=== PATIENT | female | born 1970 | race African-American/Black ===

== ENCOUNTER 2016-04-14 11:11 | Inpatient (IN) | payer OTHER ==
[~2016-04-14] VITALS: Ht 157.5 cm; Wt 105.6 kg
[~2016-04-14 11:11] MED LIST: AMBIEN10 MG PO; ARIPIPRAZOLE10 MG PO; ATARAX,VISTARIL50 MG PO; ATORVASTATIN CA20 MG PO; AVENTYL,PAMELOR50 MG PO; AVINZA30 MG PO; BUSPAR15 MG PO; BUSPIRONE HCL15 MG PO; CATAPRES0.3 MG PO; CLONIDINE HCL0.2 MG PO; CLONIDINE HCL0.3 MG PO; CORTISONE57 GM TP; CYCLOBENZAPRINE10 MG PO; CYMBALTA20 MG PO; CYMBALTA60 MG PO; DILAUDID2 MG PO; DULOXETINE HCL60 MG PO; GLUCOPHAGE XR750 MG PO; GLUCOPHAGE1000 MG PO; GLUCOPHAGE500 MG PO; HYDRALAZINE HCL50 MG PO; HYDROCORTISON28.4 GM TP; INDERAL LA60 MG PO; LASIX20 MG PO; LIPITOR20 MG PO; LISINOPRIL20 MG PO; LUNESTA3 MG PO; LYRICA50 MG PO; METFORMIN HCL1000 MG PO; METFORMIN HCL500 MG PO; MINOCIN100 MG PO; MORPHINE SULFAT15 M1 PO; MORPHINE SULFAT30 M2 PO; MOTRIN800 MG PO; NORCO 5/3251 TABLET PO; OLANZAPINE5 MG PO; OMEPRAZOLE20 MG PO; OPANA ER10 MG PO; PRAZOSIN HCL2 MG PO; PRILOSEC20 MG PO; PROMETHAZINE HC25 M1 PO; PROPRANOLOL HCL40 MG PO; PROPRANOLOL HCL60 MG; PROPRANOLOL HCL60 MG PO; PROPRANOLOL HCL80 M1 PO; QUETIAPINE FUM200 MG PO; REGLAN10 MG PO; RYBIX ODT50 MG PO; SAVELLA100 MG PO; SAVELLA50 MG; TOPAMAX50 MG PO; TOPIRAMATE100 MG PO; TOPIRAMATE25 MG PO; TRAMADOL HCL50 MG PO; TRAZODONE HCL50 MG PO; TRIAMCINOLONE A15 GM TP; ULTRAM50 MG PO; ZIPRASIDONE HCL80 MG PO; ZOLPIDEM TARTRA10 MG PO; ZOLPIDEM TARTRAT5 MG PO; [UNRECOGNIZED DRUG - OTHER] PO
[2016-04-14 13:19] LABS: HEMATOCRIT 36.4 % (36.0-46.0); MCHC 31.3 G/DL (30.0-36.0); MCV 79.8 FL (83-99); MEAN PLAT.VOLUME 10.8 uM^3 (9.5-12.4); PLATELET COUNT 301 K/uL (156-360); RBC DIS.WIDTH-CV 16.3 % (11.8-14.6); RBC DIS.WIDTH-SD 46.7 % (39-53); RED BLOOD COUNT 4.56 M/uL (3.80-5.20); WHITE BLOOD COUNT 6.1 K/uL (4.1-10.2)
[2016-04-14 13:27] LABS: CHLORIDE 104 mEq/L (99-109); POTASSIUM 3.5 mEq/L (3.7-5.4); SODIUM 143 mEq/L (136-147)
[2016-04-14 13:30] LABS: GLUCOSE 83 mg/dL (70-99)
[2016-04-14 13:31] LABS: ANION GAP 10 MEQ/L (2-14); TOTAL BILIRUBIN 0.3 mg/dL (0.0-1.0)
[2016-04-14 13:32] LABS: SERUM ETHYL ALCOHOL < 10 mg/dL
[2016-04-14 13:33] LABS: ALKALINE PHOSPHATASE 83 IU/L (3-129); GFR ESTIMATE (CALCULATED) > 59 mL/min/
[2016-04-14 13:34] LABS: UREA NITROGEN (BUN) 5 mg/dL (9-23)
[2016-04-14 13:44] LABS: QUANTITATIVE HCG < 4.0 MIU/ML
[2016-04-14 14:18] LABS: ADD MIUA? YES; BILIRUBIN NEGATIVE; BLOOD NEGATIVE; COLOR YELLOW ((YELLOW)); GLUCOSE (STRIP) NEGATIVE; KETONES NEGATIVE; LEUKOCYTES NEGATIVE; NITRITE NEGATIVE; PROTEIN (STRIP) NEGATIVE; SPECIFIC GRAVITY 1.018 (1.000-1.030); UROBILINOGEN 0.2 MG/DL (0.2-1.0)
[2016-04-14 14:25] LABS: AMPHETAMINE NEGATIVE (500 ng/mL); BARBITURATES NEGATIVE (200 ng/mL); BENZODIAZEPINES NEGATIVE (150 ng/mL); COCAINE NEGATIVE (150 ng/mL); INTERNAL CONTROLS VALID? YES; METHADONE PRESUMPTIVE POSITIVE (200 ng/mL); METHAMPHETAMINE NEGATIVE (500 ng/mL); OPIATES (MORPHINE) PRESUMPTIVE POSITIVE (100 ng/mL); OXYCODONE NEGATIVE (100 ng/mL); PHENCYCLIDINE NEGATIVE (25 ng/mL); PROPOXYPHENE NEGATIVE (300 ng/mL); THC CANNABINOIDS NEGATIVE (50 ng/mL); TRICYCLIC ANTIDEPRESSANTS PRESUMPTIVE POSITIVE (300 ng/mL)
[2016-04-14 14:26] LABS: ADD MEDTOX COMMENT Y
[2016-04-14 14:33] LABS: BACTERIA 2+ /HPF; EPITHELIAL CELLS 2+ /HPF; HYALINE CASTS 0-5 /LPF; MUCUS 2+ /LPF; RED BLOOD CELLS 0-5 /HPF (0-5); WHITE BLOOD CELLS 0-5 /HPF (0-5)
[2016-04-14] MEDS ORDERED: METHADONE10 MG PO ×2 (15:30)
[2016-04-14] MEDS ORDERED: DILAUDID2 MG PO (15:31)
[2016-04-14] MEDS ORDERED: CYMBALTA60 MG PO (15:32)
[2016-04-14 15:43] VITALS: BP 132/72
[2016-04-14 21:37] VITALS: BP 124/63
[2016-04-15 07:31] VITALS: BP 124/62
[2016-04-15 15:40] VITALS: BP 119/62
[2016-04-16 07:53] VITALS: BP 130/58
[2016-04-16 15:34] VITALS: BP 108/55
[2016-04-17 07:44] VITALS: BP 128/66
[2016-04-17 16:18] VITALS: BP 142/67
[2016-04-18 08:11] VITALS: BP 118/58
[2016-04-18 15:34] VITALS: BP 129/63
[2016-04-19 07:55] VITALS: BP 129/55
[2016-04-19 15:20] VITALS: BP 114/56
[2016-04-20 07:56] VITALS: BP 128/80
[2016-04-20 15:21] VITALS: BP 125/64
[2016-04-20 22:18] VITALS: BP 120/56
[2016-04-21 07:51] VITALS: BP 169/78
[2016-04-21 15:32] VITALS: BP 109/51
[2016-04-22 08:06] VITALS: BP 111/53
[2016-04-22 15:42] VITALS: BP 106/60
[2016-04-23 07:52] VITALS: BP 100/53
[2016-04-23 15:45] VITALS: BP 109/54
[2016-04-24 09:31] VITALS: BP 108/51
[2016-04-24 15:21] VITALS: BP 123/56
[2016-04-25 07:41] VITALS: BP 124/63
[2016-04-25] MEDS ORDERED: ARIPIPRAZOLE5 MG PO (09:24)
[2016-04-25] MEDS ORDERED: BUSPAR15 MG PO (09:24)
[2016-04-25] MEDS ORDERED: CYMBALTA60 MG PO (09:25)
== END 2016-04-25 11:23 | disposition home or self-care (01) | DRG 885 ==
LOC: EME 11:11 → 1WEST 14:54 → EDOF 14:54 → 1WEST 15:38
PROVIDERS: Emergency Medicine
DX: F33.3 Major depressive disorder, recurrent, severe with psychotic symptoms (principal); Z68.43 Body mass index [BMI] 50.0-59.9, adult; I10 Essential (primary) hypertension; Z91.14 Patient's other noncompliance with medication regimen; F15.99 Other stimulant use, unspecified with unspecified stimulant-induced disorder; F41.9 Anxiety disorder, unspecified; E66.01 Morbid (severe) obesity due to excess calories; M19.90 Unspecified osteoarthritis, unspecified site; G89.29 Other chronic pain; M54.9 Dorsalgia, unspecified; E11.9 Type 2 diabetes mellitus without complications; M79.7 Fibromyalgia; G43.909 Migraine, unspecified, not intractable, without status migrainosus; F60.4 Histrionic personality disorder; F11.19 Opioid abuse with unspecified opioid-induced disorder; Z79.84 Long term (current) use of oral hypoglycemic drugs
CPT/HCPCS: 80053; 81003; 84702; 84999; 85027; 90839; 97150 GO; 97165 GO; 99281; 99285; G0480

== ENCOUNTER 2016-06-03 09:52 | Inpatient (IN) | payer OTHER ==
[~2016-06-03] VITALS: Ht 157.5 cm; Wt 103.8 kg
[~2016-06-03 09:52] MED LIST changes: +ARIPIPRAZOLE5 MG PO; +METHADONE10 MG PO
[2016-06-03 10:54] LABS: HEMATOCRIT 34.3 % (36.0-46.0); MCH 25.1 PG (29.0-34.0); MCHC 30.9 G/DL (30.0-36.0); MCV 81.1 FL (83-99); MEAN PLAT.VOLUME 10.4 uM^3 (9.5-12.4); PLATELET COUNT 299 K/uL (156-360); RBC DIS.WIDTH-CV 15.9 % (11.8-14.6); RBC DIS.WIDTH-SD 46.1 % (39-53); RED BLOOD COUNT 4.23 M/uL (3.80-5.20); WHITE BLOOD COUNT 9.2 K/uL (4.1-10.2)
[2016-06-03 11:00] LABS: ADD MIUA? YES; BILIRUBIN NEGATIVE; BLOOD NEGATIVE; COLOR YELLOW ((YELLOW)); GLUCOSE (STRIP) NEGATIVE; KETONES 20; LEUKOCYTES NEGATIVE; NITRITE NEGATIVE; PROTEIN (STRIP) 30; SPECIFIC GRAVITY 1.014 (1.000-1.030); UROBILINOGEN 0.2 MG/DL (0.2-1.0)
[2016-06-03 11:10] LABS: CHLORIDE 102 mEq/L (99-109); POTASSIUM 3.5 mEq/L (3.7-5.4); SODIUM 139 mEq/L (136-147)
[2016-06-03 11:10] LABS: BACTERIA RARE /HPF; EPITHELIAL CELLS 3+ /HPF; MUCUS 3+ /LPF; RED BLOOD CELLS 0-5 /HPF (0-5); URIC ACID CRYSTALS 1+ /HPF; WHITE BLOOD CELLS 0-5 /HPF (0-5)
[2016-06-03 11:13] LABS: GLUCOSE 96 mg/dL (70-99)
[2016-06-03 11:14] LABS: ANION GAP 13 MEQ/L (2-14)
[2016-06-03 11:15] LABS: TOTAL BILIRUBIN 0.4 mg/dL (0.0-1.0)
[2016-06-03 11:16] LABS: ALKALINE PHOSPHATASE 84 IU/L (3-129); SERUM ETHYL ALCOHOL < 10 mg/dL
[2016-06-03 11:16] LABS: AMPHETAMINE NEGATIVE (500 ng/mL); BARBITURATES NEGATIVE (200 ng/mL); BENZODIAZEPINES NEGATIVE (150 ng/mL); COCAINE NEGATIVE (150 ng/mL); INTERNAL CONTROLS VALID? YES; METHADONE PRESUMPTIVE POSITIVE (200 ng/mL); METHAMPHETAMINE NEGATIVE (500 ng/mL); OPIATES (MORPHINE) NEGATIVE (100 ng/mL); OXYCODONE NEGATIVE (100 ng/mL); PHENCYCLIDINE NEGATIVE (25 ng/mL); PROPOXYPHENE NEGATIVE (300 ng/mL); THC CANNABINOIDS NEGATIVE (50 ng/mL); TRICYCLIC ANTIDEPRESSANTS PRESUMPTIVE POSITIVE (300 ng/mL)
[2016-06-03 11:17] LABS: GFR ESTIMATE (CALCULATED) > 59 mL/min/
[2016-06-03 11:18] LABS: UREA NITROGEN (BUN) 7 mg/dL (9-23)
[2016-06-03 11:26] LABS: QUANTITATIVE HCG < 4.0 MIU/ML
[2016-06-03 14:52] VITALS: BP 145/97
[2016-06-04 07:21] VITALS: BP 152/81
[2016-06-04 14:47] VITALS: BP 142/92
[2016-06-05 12:43] VITALS: BP 126/69
[2016-06-05 16:10] VITALS: BP 142/73
[2016-06-06 07:41] VITALS: BP 138/83
[2016-06-06 14:57] VITALS: BP 135/61
[2016-06-07 07:46] VITALS: BP 151/75
[2016-06-07 11:48] VITALS: BP 125/68
[2016-06-07 15:33] VITALS: BP 135/65
[2016-06-08 07:51] VITALS: BP 146/77
[2016-06-08 15:53] VITALS: BP 151/97
[2016-06-08 19:44] VITALS: BP 148/67
[2016-06-09 09:14] VITALS: BP 137/73
[2016-06-09 16:11] VITALS: BP 141/91
[2016-06-10 07:53] VITALS: BP 157/90
[2016-06-10 16:00] VITALS: BP 120/61
[2016-06-11 16:00] VITALS: BP 126/67
[2016-06-12 08:37] VITALS: BP 123/57
[2016-06-12 15:48] VITALS: BP 150/94
[2016-06-13 07:59] VITALS: BP 145/92
[2016-06-13 15:40] VITALS: BP 142/72
[2016-06-14 08:05] VITALS: BP 120/64
[2016-06-14 15:43] VITALS: BP 151/79
[2016-06-15 07:58] VITALS: BP 128/77
[2016-06-15 15:32] VITALS: BP 123/75
[2016-06-16 08:06] VITALS: BP 143/89
[2016-06-16] MEDS ORDERED: PRAZOSIN HCL1 MG PO (09:38)
[2016-06-16] MEDS ORDERED: SINEQUAN25 MG PO (09:38)
[2016-06-16] MEDS ORDERED: ARIPIPRAZOLE10 MG PO (09:38)
[2016-06-16] MEDS ORDERED: BUSPAR15 MG PO (09:38)
[2016-06-16] MEDS ORDERED: CITALOPRAM HBR10 MG PO (09:38)
[2016-06-16] MEDS ORDERED: DULOXETINE HCL60 MG PO (09:38)
[2016-06-16] MEDS ORDERED: CYCLOBENZAPRINE10 MG PO (09:46)
[2016-06-16] MEDS ORDERED: METHADONE10 MG PO (09:46)
[2016-06-16] MEDS ORDERED: METFORMIN HCL1000 MG PO (09:46)
[2016-06-16] MEDS ORDERED: INDERAL40 MG PO (09:46)
[2016-06-16] MEDS ORDERED: CLONIDINE HCL0.2 MG PO (09:46)
== END 2016-06-16 12:02 | disposition home or self-care (01) | DRG 885 ==
LOC: EME → EDBD 09:52 → EME 09:52 → 1WEST 12:24 → EDOF 12:24 → 1WEST 12:24
PROVIDERS: Emergency Medicine
DX: F33.3 Major depressive disorder, recurrent, severe with psychotic symptoms (principal); Z68.41 Body mass index [BMI] 40.0-44.9, adult; E66.01 Morbid (severe) obesity due to excess calories; E11.9 Type 2 diabetes mellitus without complications; Z91.14 Patient's other noncompliance with medication regimen; F11.21 Opioid dependence, in remission; F60.9 Personality disorder, unspecified; I10 Essential (primary) hypertension; M79.7 Fibromyalgia; M19.90 Unspecified osteoarthritis, unspecified site
CPT/HCPCS: 80053; 81003; 84702; 85027; 90839; 97150 GO; 97166 GO; 99281; 99284; G0480; Q0177

== ENCOUNTER 2016-09-11 07:00 | Inpatient (IN) | payer OTHER ==
[~2016-09-11] VITALS: Ht 157.5 cm; Wt 104.4 kg
[~2016-09-11 07:00] MED LIST changes: +CITALOPRAM HBR10 MG PO; +INDERAL40 MG PO; +PRAZOSIN HCL1 MG PO; +SINEQUAN25 MG PO
[2016-09-11 10:15] LABS: HEMATOCRIT 32.2 % (36.0-46.0); MCH 25.5 PG (29.0-34.0); MCHC 31.4 G/DL (30.0-36.0); MCV 81.3 FL (83-99); MEAN PLAT.VOLUME 10.1 uM^3 (9.5-12.4); PLATELET COUNT 288 K/uL (156-360); RBC DIS.WIDTH-CV 15.1 % (11.8-14.6); RBC DIS.WIDTH-SD 44.7 % (39-53); RED BLOOD COUNT 3.96 M/uL (3.80-5.20); WHITE BLOOD COUNT 5.3 K/uL (4.1-10.2)
[2016-09-11 10:28] LABS: CHLORIDE 102 mEq/L (99-109); POTASSIUM 3.3 mEq/L (3.7-5.4); SODIUM 139 mEq/L (136-147)
[2016-09-11 10:30] LABS: GLUCOSE 88 mg/dL (70-99)
[2016-09-11 10:31] LABS: ANION GAP 9 MEQ/L (2-14)
[2016-09-11 10:32] LABS: TOTAL BILIRUBIN 0.1 mg/dL (0.0-1.0)
[2016-09-11 10:33] LABS: SERUM ETHYL ALCOHOL < 10 mg/dL
[2016-09-11 10:34] LABS: GFR ESTIMATE (CALCULATED) > 59 mL/min/
[2016-09-11 10:35] LABS: ALKALINE PHOSPHATASE 71 IU/L (3-129)
[2016-09-11 10:36] LABS: UREA NITROGEN (BUN) 6 mg/dL (9-23)
[2016-09-11 10:38] LABS: SALICYLATE < 5.0 MG/DL (15-30)
[2016-09-11 12:23] LABS: ADD MIUA? YES; BILIRUBIN NEGATIVE; BLOOD MODERATE; COLOR YELLOW ((YELLOW)); GLUCOSE (STRIP) NEGATIVE; KETONES NEGATIVE; LEUKOCYTES MODERATE; NITRITE NEGATIVE; PROTEIN (STRIP) 30; SPECIFIC GRAVITY 1.019 (1.000-1.030); UROBILINOGEN 0.2 MG/DL (0.2-1.0)
[2016-09-11 12:30] LABS: BACTERIA 1+ /HPF; EPITHELIAL CELLS RARE /HPF; MUCUS TRACE /LPF; UCUL ADDED? NO; WHITE BLOOD CELLS 0-5 /HPF (0-5)
[2016-09-11 12:42] LABS: AMPHETAMINE NEGATIVE (500 ng/mL); BENZODIAZEPINES NEGATIVE (150 ng/mL); COCAINE NEGATIVE (150 ng/mL); METHAMPHETAMINE NEGATIVE (500 ng/mL); OPIATES (MORPHINE) PRESUMPTIVE POSITIVE (100 ng/mL); PHENCYCLIDINE NEGATIVE (25 ng/mL); THC CANNABINOIDS NEGATIVE (50 ng/mL)
[2016-09-11 12:43] LABS: ADD MEDTOX COMMENT Y; BARBITURATES NEGATIVE (200 ng/mL); INTERNAL CONTROLS VALID? YES; METHADONE PRESUMPTIVE POSITIVE (200 ng/mL); OXYCODONE NEGATIVE (100 ng/mL); PROPOXYPHENE NEGATIVE (300 ng/mL); TRICYCLIC ANTIDEPRESSANTS PRESUMPTIVE POSITIVE (300 ng/mL)
[2016-09-11 15:38] VITALS: BP 130/82
[2016-09-11 15:43] VITALS: BP 130/88
[2016-09-12 07:23] VITALS: BP 149/83
[2016-09-12 15:17] VITALS: BP 158/73
[2016-09-13 07:00] VITALS: BP 120/73
[2016-09-13 16:42] VITALS: BP 132/88
[2016-09-14 08:04] VITALS: BP 127/59
[2016-09-14 16:06] VITALS: BP 137/77
[2016-09-15 07:48] VITALS: BP 153/106
[2016-09-15 15:29] VITALS: BP 137/69
[2016-09-16 07:55] VITALS: BP 152/102
[2016-09-16 15:44] VITALS: BP 100/56
[2016-09-17 07:10] VITALS: BP 163/72
[2016-09-17 15:45] VITALS: BP 106/59
[2016-09-18 07:28] VITALS: BP 127/80
[2016-09-19 07:32] VITALS: BP 120/61
[2016-09-19 15:22] VITALS: BP 153/77
[2016-09-20 07:26] VITALS: BP 120/64
[2016-09-20 15:29] VITALS: BP 134/84
[2016-09-21 07:33] VITALS: BP 121/88
[2016-09-22 15:33] VITALS: BP 131/63
[2016-09-23 07:55] VITALS: BP 125/72
[2016-09-23 15:42] VITALS: BP 152/82
[2016-09-24 07:35] VITALS: BP 131/92
[2016-09-24 15:50] VITALS: BP 122/62
[2016-09-25 07:54] VITALS: BP 124/63
[2016-09-25 16:11] VITALS: BP 139/99
[2016-09-26 08:12] VITALS: BP 136/66
[2016-09-26 15:44] VITALS: BP 151/104
[2016-09-27 07:48] VITALS: BP 150/95
[2016-09-27 15:42] VITALS: BP 133/63
[2016-09-28 07:50] VITALS: BP 113/64
[2016-09-28 15:58] VITALS: BP 107/59
[2016-09-29 07:44] VITALS: BP 129/70
[2016-09-29 15:21] VITALS: BP 138/60
[2016-09-30 07:53] VITALS: BP 138/81
[2016-09-30 15:31] VITALS: BP 131/74
[2016-10-01 07:58] VITALS: BP 127/60
[2016-10-01 15:28] VITALS: BP 108/57
[2016-10-02 07:52] VITALS: BP 147/65
[2016-10-02 15:56] VITALS: BP 118/56
[2016-10-03 07:40] VITALS: BP 141/63
[2016-10-03 15:26] VITALS: BP 124/68
[2016-10-04 07:55] VITALS: BP 89/53
[2016-10-04 08:57] VITALS: BP 125/61
[2016-10-04 15:37] VITALS: BP 144/67
[2016-10-05 08:01] VITALS: BP 150/86
[2016-10-05 16:04] VITALS: BP 140/63
[2016-10-06 07:47] VITALS: BP 109/58
[2016-10-06 15:53] VITALS: BP 114/62
[2016-10-07 08:13] VITALS: BP 118/58
[2016-10-07 15:38] VITALS: BP 128/79
[2016-10-08 07:27] VITALS: BP 111/63
[2016-10-08 15:52] VITALS: BP 157/91
[2016-10-09 08:32] VITALS: BP 128/60
[2016-10-09] MEDS ORDERED: ARIPIPRAZOLE30 MG PO ×2 (11:20→11:25)
[2016-10-09] MEDS ORDERED: INDERAL40 MG PO ×2 (11:20→11:25)
[2016-10-09] MEDS ORDERED: PRAZOSIN HCL1 MG PO (11:20)
[2016-10-09] MEDS ORDERED: DIVALPROEX SOD500 MG PO ×2 (11:20→11:25)
[2016-10-09] MEDS ORDERED: TRAMADOL HCL50 MG PO ×2 (11:20→11:25)
[2016-10-09] MEDS ORDERED: LORATADINE10 M2 PO ×2 (11:20→11:25)
[2016-10-09] MEDS ORDERED: CYCLOBENZAPRINE10 MG PO ×2 (11:20→11:25)
[2016-10-09] MEDS ORDERED: METFORMIN HCL1000 MG PO ×2 (11:20→11:25)
[2016-10-09] MEDS ORDERED: CLONIDINE HCL0.2 MG PO ×2 (11:20→11:25)
[2016-10-09] MEDS ORDERED: KETOCONAZOLE60 GM TP (11:20)
== END 2016-10-09 14:39 | disposition home or self-care (01) | DRG 885 ==
LOC: EME → EDBD 07:00 → EME 07:00 → EDOF 12:16 → 1WEST 12:16
PROVIDERS: Nurse Practitioner Family
DX: F25.9 Schizoaffective disorder, unspecified (principal); F60.9 Personality disorder, unspecified; E11.9 Type 2 diabetes mellitus without complications; G89.29 Other chronic pain; M54.9 Dorsalgia, unspecified; M79.7 Fibromyalgia; K21.9 Gastro-esophageal reflux disease without esophagitis; F41.9 Anxiety disorder, unspecified; G43.909 Migraine, unspecified, not intractable, without status migrainosus; E66.9 Obesity, unspecified; Z59.0 Homelessness; Z68.41 Body mass index [BMI] 40.0-44.9, adult; Z91.14 Patient's other noncompliance with medication regimen
CPT/HCPCS: 80053; 80164; 81003; 84702; 84999; 85027; 90837; 97150 GO; 97166 GO; 99281; 99285; G0480; J1630; J2060